=== PATIENT | male | born 1955 | race Caucasian/White ===

== ENCOUNTER 2025-08-23 08:28 | Emergency (ER) | payer MEDICARE, SELFPAY ==
[2025-08-23 08:29] VITALS: BP 139/79; PULSE 65; RESP 14; TEMP 36.1; O2SAT 98; BMI 37.3
--- NOTE | 2025-08-23 08:45 | EX.ED.DYSGE1 ---
HPI History of Present Illness Chief Complaint: Nosebleed Detail of Chief Complaint: Nosebleed Informant: patient Narrative Narrative: Patient presents to the emergency department complaint of a nosebleed that started around 6:30 AM. Patient states he was sleeping when he noted that it started. He has had nosebleeds in the past that have required cauterization. He is on Plavix every other day and also on Eliquis for prior history of atrial flutter. Patient states that he had an ablation in he is normally in sinus rhythm. Patient visiting from out of town and is here for a [employer] convention. [facility] Medications ?Medication ?Instructions ?Recorded ?Last Taken ?Type allopurinol 100 mg tablet 200 mg PO DAILY 08/23/25 Unknown History amoxicillin 500 mg capsule 500 mg PO Q8 08/23/25 Unknown History apixaban 5 mg tablet (Eliquis) 5 mg PO BID 08/23/25 Unknown History atorvastatin 40 mg tablet 40 mg PO DAILY 08/23/25 Unknown History clopidogrel 75 mg tablet 75 mg PO QODAY 08/23/25 Unknown History dulaglutide 1.5 mg/0.5 mL 1.5 mg subcut QWEEK 08/23/25 Unknown History subcutaneous pen injector (Trulicity) empagliflozin 25 mg tablet 25 mg PO DAILY 08/23/25 Unknown History (Jardiance) enalapril maleate 2.5 mg tablet 2.5 mg PO DAILY 08/23/25 Unknown History fluorouracil 5 % topical cream applic topical 08/23/25 Unknown History glipizide 5 mg tablet, extended 5 mg PO BID 08/23/25 Unknown History release 24 hr metformin 1,000 mg tablet 1,000 mg PO BID 08/23/25 Unknown History metoprolol succinate 100 mg 100 mg PO 08/23/25 Unknown History tablet,extended release 24 hr montelukast 10 mg tablet 10 mg PO DAILY 08/23/25 Unknown History pantoprazole 40 mg tablet,delayed 40 mg PO DAILY 08/23/25 Unknown History release Allergy/AdvReac Type Severity Reaction Status Date / Time procaine (From novacain) Allergy Swelling Verified 08/23/25 08:30 ROS ROS ED Review of Systems ROS Unobtainable: other Constitutional Constitutional ED: Reports lethargy; Denies chills, fever(s), sweats or weight loss Eyes Eyes: Denies blurry vision, change in vision or diplopia ENT ENT ED: Reports other Details: Nosebleed ; Denies rhinorrhea or sore throat Cardiovascular Cardiovascular: Denies chest pain, orthopnea or racing heartbeat Respiratory/Chest Respiratory/Chest: Denies cough, dyspnea, dyspnea on exertion, orthopnea or sputum Gastrointestinal Gastrointestinal: Denies abdominal pain, diarrhea, nausea or vomiting Genitourinary Genitourinary ED: Denies dysuria, hematuria or urinary frequency Musculoskeletal Musculoskeletal: Denies arthralgias, back pain, myalgias or neck pain Integumentary Denies abscess, Abrasions or rash Neurologic Neurologic: Denies headache(s) or weakness Psychiatric Psychiatric: Denies anxiety, depression or suicidal thoughts Endocrine Endocrinology: Denies polydipsia, polyphagia or polyuria Hematologic/Lymphatic Hematologic/Lymphatic: Denies easy bleeding, easy bruising or lymphadenopathy Allergic/Immunologic Allergic/Immunologic ED: Denies mouth swelling, tongue swelling or urticaria EXAM Physical Exam Const Vital Signs: 08/23/25 08:29 Temperature 97 F L Temperature Source Temporal Pulse Rate 65 Respiratory Rate 14 Blood Pressure 139/79 H Blood Pressure Mean 99 Pulse Ox 98 Oxygen Delivery Method Room Air Positive well nourished and well developed General Appearance ED: well developed and NAD HEENT Reports TM's clear and moist mucous membranes HEENT Narrative: Patient has toilet paper packing in the right side of the nasal vault. Evaluation of the posterior oropharynx reveals no active bleeding or drainage down the back. I removed the packing and there was blood noted to the distal portion of the packing with some small clot. After inspecting the nasal vault I do not appreciate source of bleeding. Currently not actively bleeding. normocephalic and atraumatic; Negative for trauma or tenderness Tympanic Membrane ED: Yes TM's clear Eyes PERRL and EOMs intact bilaterally General Eye ED: Negative for pale conjunctiva or scleral icterus Neck no lymphadenopathy, supple and no JVD General: Negative for tenderness Chest Wall inspection of chest normal and palpation of chest normal Chest: Negative for tenderness Resp normal respiratory effort and clear to auscultation bilaterally Effort and Inspection: Negative for respiratory distress or pain with movement Auscultation: Negative for rhonchi, wheezes or diminished lung sounds Cardio regular rate, regular rhythm, S1 normal heart sound, S2 normal heart sound and no murmurs Peripheral Pulses: pulses 2+ throughout GI normal to inspection, nondistended, normoactive bowel sounds, soft to palpation, non-tender, non-distended and no masses Back/Spine no CVA tenderness and no thoracic nor lumbar tenderness Extremity normal to inspection General Extremety ED: Negative for edema General Extremity: Negative for edema Neuro oriented x3, CN's II-XII intact bilaterally, no sensory deficits noted and gait normal Sensorium / Orientation: awake, alert, oriented to person, oriented to place and oriented to time Motor Exam: strength 5/5 throughout and strength abnormal Psych mental status grossly normal Skin no rashes or lesions noted and no wounds MDM MDM MDM Narrative Medical decision making narrative: Patient presents with spontaneous nosebleed with prior history of nosebleeds and anticoagulated with Plavix and Eliquis. Clinically looks well. No active bleeding currently. Patient tells me he has severe allergy to Novocain. We will observe in the department and reassess. If he has recurrence of the bleeding may require nasal packing. Patient was observed over an hour and he had no further bleeding. I did ambulate him in the department and there was no bleeding. I had him gargle with water and there was no significant bleeding just minimal tinge of red which may be remnant from clot to posterior oropharynx. At this point recommended that he discontinue his Eliquis and Plavix for 4 to 5 days. He is currently in sinus rhythm. Advised to follow-up with primary care physician or ENT back home within the next 3 to 5 days. Advised to hold constant pressure and pack the nose for 20 minutes and if the bleeding does not stop to return to the emergency department if his symptoms should return. Discharge Plan Triage Chief Complaint: Nosebleed ED Provider: Kathi Silva Dx/Rx/DC Orders Clinical Impression: Epistaxis Instructions: ED Epistaxis (Adult) Prescriptions: No Action amoxicillin 500 mg capsule 500 mg PO Q8 atorvastatin 40 mg tablet 40 mg PO DAILY enalapril maleate 2.5 mg tablet 2.5 mg PO DAILY fluorouracil 5 % cream 1 applic topical DAILY metoprolol succinate 100 mg tablet extended release 24 hr 100 mg PO DAILY glipizide 5 mg tablet extended release 24hr 5 mg PO BID clopidogrel 75 mg tablet 75 mg PO QODAY allopurinol 100 mg tablet 200 mg PO DAILY pantoprazole 40 mg tablet,delayed release (DR/EC) 40 mg PO DAILY metformin 1,000 mg tablet 1,000 mg PO BID montelukast 10 mg tablet 10 mg PO DAILY Eliquis 5 mg tablet 5 mg PO BID Jardiance 25 mg tablet 25 mg PO DAILY Trulicity 1.5 mg/0.5 mL pen injector 1.5 mg subcut QWEEK Primary Care Provider: SEYMOUR POLK Referrals: SEYMOUR POLK [Other] Activity Restrictions/Additional Instructions: Follow-up with your ear nose and throat physician within the next 3 to 5 days. Print Language: Argentine Disposition Disposition: Home, Self Care
[2025-08-23 10:07] VITALS: BP 121/71; PULSE 65; RESP 16; TEMP 36.6; O2SAT 99
== END 2025-08-23 10:07 | disposition home or self-care (01) ==
PROVIDERS: Emergency Provider Emergency Medicine; Visit Provider Emergency Medicine
DX: R04.0 Epistaxis (principal); Z79.01 Long term (current) use of anticoagulants
CPT/HCPCS: 99282